=== PATIENT | male | born 1965 | race Caucasian/White ===

== ENCOUNTER → 2023-03-16 06:28 | Day surgery (SDC) | payer OTHER, SELFPAY | LOC: GI 06:28 | PROVIDERS: ATTENDING PHYSICIAN Specialist | DX: R10.13 Epigastric pain (principal); K31.7 Polyp of stomach and duodenum; K29.50 Unspecified chronic gastritis without bleeding; K29.80 Duodenitis without bleeding | CPT/HCPCS: 43239; 88305; 88342 ==

== ENCOUNTER → 2023-03-19 18:20 | Outpatient (REF) | payer OTHER, SELFPAY | LOC: PAVMRI 18:20 | PROVIDERS: ATTENDING PHYSICIAN Internal Medicine; FAMILY PHYSICIAN Family Medicine; REFERRING PHYSICIAN Specialist | DX: R10.9 Unspecified abdominal pain (principal) | CPT/HCPCS: 74183; A9575 ==

== ENCOUNTER → 2023-09-08 08:07 | Outpatient (REF) | payer OTHER, SELFPAY | LOC: RCS 08:07 | PROVIDERS: ATTENDING PHYSICIAN Internal Medicine Hematology & Oncology; FAMILY PHYSICIAN Family Medicine | DX: I82.890 Acute embolism and thrombosis of other specified veins (principal) | CPT/HCPCS: 93306 ==